=== PATIENT | male | born 1955 | race African-American/Black ===

== ENCOUNTER 2017-02-08 21:41 | Inpatient (IN) | payer MEDICARE, MEDICAID ==
[~2017-02-08] VITALS: Ht 188 cm; Wt 81.2 kg
[2017-02-08] MEDS ORDERED: SODIUM CHLORIDE 0.9% 1,000 ML IV ONE (22:12)
[2017-02-08 22:34] LABS: BASOPHILS % 1.5 % (0.0-2.0); EOSINOPHILS % 2.9 % (0.0-5.0); HEMATOCRIT. 21.2 % (42.0-52.0); LYMPHOCYTES % 12.9 % (20.0-50.0); MEAN CORPUSCULAR HEMOGLOBIN 25.6 pg (28.0-32.0); MEAN CORPUSCULAR VOLUME 82.3 fL (80.0-94.0); MEAN PLATELET VOLUME 8.5 fl (7.4-10.4); MONOCYTES % 10.5 % (2.0-8.0); NEUTROPHILS % 72.2 % (40.0-76.0); PLATELET 176 x1000/uL (130-400); RED BLOOD CELL COUNT 2.58 mill/uL (4.7-6.1); RED CELL DISTRIBUTION WIDTH 18.4 % (11.6-14.6)
[2017-02-08 22:38] LABS: HEMOGLOBIN. 6.6 g/dL (14.0-18.0)
[2017-02-08 22:39] LABS: INR 1.1; PROTHROMBIN TIME 11.8 sec (9.4-11.6)
[2017-02-08 22:40] LABS: CHLORIDE 112 mEq/L (98-107)
[2017-02-08 22:48] LABS: CARBON DIOXIDE 17 mEq/L (21-32); ETHANOL BLOOD 35 mg/dL
[2017-02-08 22:50] LABS: TROPONIN I < 0.02 ng/mL (0.00-0.04)
[2017-02-09] VITALS (12 sets, daily range): BP systolic 102–143; BP diastolic 47–77
[2017-02-09 02:28] LABS: CLARITY URINE CLEAR (CLEAR); COLOR URINE YELLOW (YELLOW); GLUCOSE URINE NEGATIVE (NEGATIVE); KETONES URINE NEGATIVE (NEGATIVE); LEUKOCYTE ESTERASE URINE NEGATIVE (NEGATIVE); NITRITE URINE NEGATIVE (NEGATIVE); OCCULT BLOOD URINE NEGATIVE (NEGATIVE); PROTEIN URINE NEGATIVE (NEGATIVE); SPECIFIC GRAVITY URINE 1.013 (1.005-1.030); UROBILINOGEN URINE 0.2 E.U./dL (0.2-1.0)
[2017-02-09 02:42] LABS: *AMPHETAMINES SCREEN URINE NEGATIVE (NEGATIVE); *BARBITURATES SCREEN URINE NEGATIVE (NEGATIVE); *BENZODIAZEPINES SCREEN URINE NEGATIVE (NEGATIVE); *COCAINE SCREEN URINE NEGATIVE (NEGATIVE); CANNABINOID URINE SCREEN NEGATIVE (NEGATIVE); METHADONE URINE SCREEN NEGATIVE (NEGATIVE); OPIATES URINE SCREEN NEGATIVE (NEGATIVE); PHENCYCLIDINE URINE SCREEN NEGATIVE (NEGATIVE)
[2017-02-09] MEDS ORDERED: ALBU90AE IH (04:39)
[2017-02-09] MEDS ORDERED: ATEN100T PO (04:39)
[2017-02-09] MEDS ORDERED: IPRATROPIUM/ALBUTEROL 0.5-3(2.5)MG/3ML NEB HHN PRN (05:30)
[2017-02-09] MEDS ORDERED: ACETAMINOPHEN 650MG/20.3ML UDC GT PRN (08:00)
[2017-02-09] MEDS ORDERED: NA PHOS,M-B/NA PHOS,DI-BA ENEMA 118ML PR PRN (08:00)
[2017-02-09] MEDS ORDERED: DOCUSATE SODIUM 100MG CAPSULE PO PRN (08:00)
[2017-02-09] MEDS ORDERED: GUAIFENESIN 200MG/10ML SUGAR FREE UDC PO PRN (08:00)
[2017-02-09] MEDS ORDERED: DIPHENHYDRAMINE 50MG/ML VIAL IV PRN (08:00)
[2017-02-09] MEDS ORDERED: CLONIDINE 0.1MG TABLET PO PRN (08:00)
[2017-02-09] MEDS ORDERED: ONDANSETRON HCL 4MG/2ML VIAL IV PRN (08:00)
[2017-02-09] MEDS ORDERED: ACETAMINOPHEN 325MG TABLET PO PRN (08:00)
[2017-02-09] MEDS ORDERED: MAGNESIUM/ALUMINUM HYDROXIDE/SIMETHICONE 30ML UDC PO PRN (08:00)
[2017-02-09] MEDS ORDERED: ACETAMINOPHEN 650MG SUPP PR PRN (08:00)
[2017-02-09] MEDS ORDERED: IPRATROPIUM/ALBUTEROL 0.5-3(2.5)MG/3ML NEB INH PRN (08:00)
[2017-02-09] MEDS ORDERED: HYDROCODONE/ACETAMINOPHEN 5/325MG TABLET PO PRN (08:00)
[2017-02-09] MEDS: PANTOPRAZOLE SODIUM 40 MG/VIAL IV SCH (08:47)
[2017-02-09] MEDS: NICOTINE 21MG PATCH TD SCH (11:28)
[2017-02-09] MEDS ORDERED: MULT-1234 PO (13:26)
[2017-02-09] MEDS ORDERED: VALSARTAN HCTZ PO (13:26)
[2017-02-09] MEDS ORDERED: PROC10TA PO (13:26)
[2017-02-09] MEDS ORDERED: ALLO100T PO (13:26)
[2017-02-09] MEDS ORDERED: PANT40TA4 PO (13:26)
[2017-02-09 13:44] LABS: EOSINOPHILS % 2.4 % (0.0-5.0); HEMATOCRIT. 22.5 % (42.0-52.0); HEMOGLOBIN. 7.3 g/dL (14.0-18.0); LYMPHOCYTES % 15.3 % (20.0-50.0); MEAN PLATELET VOLUME 9.1 fl (7.4-10.4); MONOCYTES % 11.8 % (2.0-8.0); NEUTROPHILS % 69.5 % (40.0-76.0); PLATELET 148 x1000/uL (130-400); RED BLOOD CELL COUNT 2.71 mill/uL (4.7-6.1); RED CELL DISTRIBUTION WIDTH 16.9 % (11.6-14.6)
[2017-02-09 13:45] LABS: INR 1.2; PROTHROMBIN TIME 12.1 sec (9.4-11.6)
[2017-02-09 14:06] LABS: CARBON DIOXIDE 21 mEq/L (21-32); CHLORIDE 114 mEq/L (98-107); TOTAL IRON BINDING CAPACITY 315 ug/dL (250-450)
[2017-02-09 15:16] LABS: VITAMIN B12 SERUM 1133 pg/mL (211-911)
[2017-02-09 15:17] LABS: FOLIC ACID (FOLATE) SERUM > 20.00 ng/mL (>5.38)
[2017-02-09] MEDS ORDERED: SORBITOL 70% SOLN 30ML PO NR ×2 (16:00→20:00)
[2017-02-09] MEDS: SODIUM CHLORIDE 0.9% INJ 3ML FLUSH IVF SCH ×2 (17:25→21:39)
[2017-02-09 17:50] LABS: HEMATOCRIT 24.6 % (42.0-52.0); HEMOGLOBIN 8.1 g/dL (14.0-18.0)
[2017-02-10] VITALS (7 sets, daily range): BP systolic 112–138; BP diastolic 67–77
[2017-02-10 00:57] LABS: HEMATOCRIT 27.2 % (42.0-52.0)
[2017-02-10] MEDS: SODIUM CHLORIDE 0.9% INJ 3ML FLUSH IVF SCH ×3 (05:57→21:05)
[2017-02-10 06:29] LABS: BASOPHILS % 1.2 % (0.0-2.0); EOSINOPHILS % 4.3 % (0.0-5.0); HEMATOCRIT. 26.3 % (42.0-52.0); HEMOGLOBIN. 8.4 g/dL (14.0-18.0); LYMPHOCYTES % 12.6 % (20.0-50.0); MEAN CORPUSCULAR HEMOGLOBIN 26.4 pg (28.0-32.0); MEAN CORPUSCULAR VOLUME 82.4 fL (80.0-94.0); MEAN PLATELET VOLUME 9.2 fl (7.4-10.4); MONOCYTES % 12.1 % (2.0-8.0); NEUTROPHILS % 69.8 % (40.0-76.0); PLATELET 161 x1000/uL (130-400); RED CELL DISTRIBUTION WIDTH 16.9 % (11.6-14.6)
[2017-02-10 07:11] LABS: CARBON DIOXIDE 20 mEq/L (21-32); CHLORIDE 120 mEq/L (98-107); LDL CHOLESTEROL 48 mg/dL (5-100)
[2017-02-10 07:12] LABS: HDL CHOLESTEROL 37 mg/dL (40-59)
[2017-02-10] MEDS: NICOTINE 21MG PATCH TD SCH (08:52)
[2017-02-10] MEDS: PANTOPRAZOLE SODIUM 40 MG/VIAL IV SCH (08:52)
[2017-02-10] MEDS ORDERED: SODIUM CHLORIDE 0.9% 10ML VIAL ONE (11:48)
[2017-02-10] MEDS ORDERED: SIMETHICONE 40 MG/0.6 ML 30ML ONE (11:48)
[2017-02-10] MEDS ORDERED: FENTANYL CITRATE/PF 50MCG/ML 2ML VIAL ONE (12:55)
[2017-02-10] MEDS ORDERED: MIDAZOLAM HCL 5 MG/5 ML VIAL ONE (12:56)
[2017-02-10 19:30] LABS: HEMATOCRIT 29.1 % (42.0-52.0); HEMOGLOBIN 9.2 g/dL (14.0-18.0)
[2017-02-10] MEDS ORDERED: SODIUM CHLORIDE 0.45% 1,000 ML IV SCH (22:00)
[2017-02-10] MEDS: ALLOPURINOL 100 MG TABLET PO SCH (22:27)
[2017-02-10] MEDS: ATENOLOL 100 MG TABLET PO SCH (22:28)
[2017-02-11] VITALS: BP 112/74
[2017-02-11] MEDS ORDERED: SODIUM BICARBONATE 8.4% 1 MEQ/ML 50ML SYR IV NR
[2017-02-11] MEDS ORDERED: DEXT 5% IV NR (03:00)
[2017-02-11] MEDS ORDERED: SODIUM BICARBONATE IV NR (03:00)
[2017-02-11] MEDS ORDERED: WATER IV NR (03:00)
[2017-02-11 04:00] VITALS: BP 127/73
[2017-02-11] MEDS: SODIUM CHLORIDE 0.9% INJ 3ML FLUSH IVF SCH ×2 (06:00→14:44)
[2017-02-11 08:00] VITALS: BP 122/75
[2017-02-11] MEDS: ATENOLOL 100 MG TABLET PO SCH (08:33)
[2017-02-11] MEDS: ALLOPURINOL 100 MG TABLET PO SCH (08:33)
[2017-02-11] MEDS: PANTOPRAZOLE SODIUM 40 MG/VIAL IV SCH (08:33)
[2017-02-11] MEDS: PROCHLORPERAZINE MALEATE 10MG TABLET PO SCH ×2 (08:33→12:44)
[2017-02-11] MEDS: NICOTINE 21MG PATCH TD SCH (10:48)
[2017-02-11 12:00] VITALS: BP 131/76
[2017-02-11 16:00] VITALS: BP 118/74
[2017-02-11 17:18] LABS: CHLORIDE 113 mEq/L (98-107)
[2017-02-11 17:28] LABS: CARBON DIOXIDE 23 mEq/L (21-32)
== END 2017-02-11 18:00 | disposition home or self-care (01) | DRG 377 ==
LOC: ER 21:47 → 6WST 02-09 00:25 → EDBEDREQTM 02-09 00:26 → EDBEDREQ 02-09 00:26 → ENRESERV 02-09 01:07
PROVIDERS: ADMIT Family Medicine; ATTEND Family Medicine
PROC: 30233N1 Transfusion of Nonautologous Red Blood Cells into Peripheral Vein, Percutaneous Approach (ICD-10-PCS; 2017-02-10)
PROC: 0DJD8ZZ Inspection of Lower Intestinal Tract, Via Natural or Artificial Opening Endoscopic (ICD-10-PCS; principal; 2017-02-10 13:30)
DX: K92.2 Gastrointestinal hemorrhage, unspecified (principal); E43 Unspecified severe protein-calorie malnutrition; N17.9 Acute kidney failure, unspecified; I95.9 Hypotension, unspecified; D64.9 Anemia, unspecified; B19.20 Unspecified viral hepatitis C without hepatic coma; D12.0 Benign neoplasm of cecum; F10.10 Alcohol abuse, uncomplicated; F17.210 Nicotine dependence, cigarettes, uncomplicated; I10 Essential (primary) hypertension; J44.9 Chronic obstructive pulmonary disease, unspecified; K21.9 Gastro-esophageal reflux disease without esophagitis; K27.9 Peptic ulcer, site unspecified, unspecified as acute or chronic, without hemorrhage or perforation; K64.8 Other hemorrhoids; M10.9 Gout, unspecified; Q27.33 Arteriovenous malformation of digestive system vessel; Z87.11 Personal history of peptic ulcer disease; M19.90 Unspecified osteoarthritis, unspecified site
CPT/HCPCS: 36415; 71010; 74176; 76770; 78278; 80053; 80061; 80305; 81003; 82270; 82607; 82728; 82746; 83540; 83550; 83690; 83880; 84484; 85014; 85018; 85025; 85384; 85610; 86850; 86900; 86920; 93005; 93970; 96360; 96361; 99285; A4216; A9560; C9113; G0482; J2250; J3010; J3490; J7030; J7040; J7050; J7060; P9016; P9021; Q0164